=== PATIENT | female | born 1965 | race Caucasian/White ===

== ENCOUNTER 2016-09-16 19:00 | Emergency (ER) | payer MEDICAID, OTHER ==
[~2016-09-16] VITALS: Ht 167.6 cm; Wt 93.0 kg
[2016-09-16 19:40] LABS: Basophils # (auto) 0.1 uL; Basophils % (auto) 0.7 % (0.0-2.0); Eosinophils # (auto) 0.1 uL; Eosinophils % (auto) 1.5 % (0.0-7.0); Hematocrit 43.1 % (36.0-46.0); Hemoglobin 14.4 g/dL (12.2-16.2); Lymphocytes # (auto) 3.4 uL; Lymphocytes % (auto) 38.1 % (10.0-50.0); Mean Corpuscular Hemoglobin 28.9 pg (28.0-32.0); Mean Corpuscular Hgb Conc. 33.5 g/dL (32.0-36.0); Mean Corpuscular Volume 86.3 fL (80.0-100.0); Mean Platelet Volume 7.7 fL (7.4-10.4); Monocytes # (auto) 0.7 uL; Monocytes % (auto) 7.9 % (0.0-12.0); Neutrophils # (auto) 4.7 uL; Neutrophils % (auto) 51.8 % (37.0-80.0); Platelet Count (auto) 321 10^3/uL (140-450); Red Cell Distribution Width 14.8 % (11.6-16.0)
[2016-09-16 20:17] LABS: Albumin 3.8 g/dL (3.4-5.0); Alkaline Phosphatase 74 U/L (45-117); Anion Gap 9 (5-15); Aspartate Aminotransferase 19 U/L (15-37); BUN/Creatinine Ratio 9.9; Bilirubin, Total 0.3 mg/dL (0.2-1.0); Blood Urea Nitrogen 10 mg/dL (7-18); Calcium 9.1 mg/dL (8.5-10.1); Carbon Dioxide 27 mmol/L (21-32); Chloride 109 mmol/L (98-107); GFR African American 74 mL/min; GFR Non-African American 61 mL/min; Glucose 98 mg/dL (74-106); Magnesium 2.3 mg/dL (1.6-2.6); Potassium 3.3 mmol/L (3.5-5.1); Sodium 145 mmol/L (136-145); Total Protein 7.5 g/dL (6.4-8.2)
[2016-09-16 20:40] LABS: INR 0.96 (0.9-1.15); Prothrombin Time 10.4 sec (9.37-12.3)
[2016-09-17] MEDS ORDERED: ALBUTEROL SULF 2.5 MG/0.5ML(0.5%) NEB SOLN NEB ONE (02:30)
[2016-09-17] MEDS ORDERED: IPRATROPIUM BROM 0.5 MG/2.5ML INH SOL NEB ONE (02:30)
[2016-09-17] MEDS ORDERED: methylPREDNISolone SOD SUCC 125 MG/2 ML VL IV ONE (02:30)
[2016-09-17 04:42] LABS: Urine Bilirubin Negative (Negative); Urine Blood Negative /uL (Negative); Urine Color Yellow (Yellow); Urine Glucose Normal (Normal); Urine Ketone Negative (Negative); Urine Nitrite Negative (Negative); Urine RBC 13 /hpf (0 - 4); Urine Squamous Epithelial Cell FEW /hpf (<5); Urine Urobilinogen Normal (Negative)
[2016-09-17 05:43] VITALS: BP 140/78
== END 2016-09-17 05:25 | disposition home or self-care (01) ==
LOC: ER 19:08
DX: J45.901 Unspecified asthma with (acute) exacerbation (principal); N39.0 Urinary tract infection, site not specified; J44.9 Chronic obstructive pulmonary disease, unspecified; I10 Essential (primary) hypertension; F20.9 Schizophrenia, unspecified; F17.210 Nicotine dependence, cigarettes, uncomplicated; F12.10 Cannabis abuse, uncomplicated
CPT/HCPCS: 36415; 71010; 80053; 81001; 83735; 84484; 85025; 85610; 85730; 94640; 96374; 99285; J2930

== ENCOUNTER 2016-09-29 08:25 | Emergency (ER) | payer MEDICAID ==
[~2016-09-29] VITALS: Ht 167.6 cm; Wt 90.7 kg
[2016-09-29 09:29] LABS: Basophils # (auto) 0 uL; Basophils % (auto) 0.3 % (0.0-2.0); Eosinophils # (auto) 0.1 uL; Eosinophils % (auto) 0.9 % (0.0-7.0); Hematocrit 39.3 % (36.0-46.0); Hemoglobin 13.1 g/dL (12.2-16.2); Lymphocytes # (auto) 1.7 uL; Lymphocytes % (auto) 18.7 % (10.0-50.0); Mean Corpuscular Hgb Conc. 33.3 g/dL (32.0-36.0); Mean Corpuscular Volume 87.2 fL (80.0-100.0); Monocytes # (auto) 0.7 uL; Monocytes % (auto) 7.4 % (0.0-12.0); Neutrophils # (auto) 6.5 uL; Neutrophils % (auto) 72.7 % (37.0-80.0); Platelet Count (auto) 285 10^3/uL (140-450); Red Cell Distribution Width 15.6 % (11.6-16.0)
[2016-09-29 10:34] LABS: Urine Bilirubin Negative (Negative); Urine Blood TRACE /uL (Negative); Urine Color Yellow (Yellow); Urine Glucose Normal (Normal); Urine Ketone Negative (Negative); Urine Mucus FEW (None Seen); Urine Nitrite Negative (Negative); Urine RBC 85 /hpf (0 - 4); Urine Squamous Epithelial Cell MOD /hpf (<5); Urine Urobilinogen Normal (Negative); Urine pH 5.5 (5.0-8.0)
[2016-09-29] MEDS ORDERED: cefTRIAXone SOD 1,000 MG VL IM ONE (11:00)
[2016-09-29 12:35] VITALS: BP 124/82
== END 2016-09-29 13:37 | disposition home or self-care (01) ==
LOC: EDUNIT# 08:25 → ER 08:32
DX: R42 Dizziness and giddiness (principal); F17.210 Nicotine dependence, cigarettes, uncomplicated; F12.10 Cannabis abuse, uncomplicated; J45.909 Unspecified asthma, uncomplicated; J44.9 Chronic obstructive pulmonary disease, unspecified; I10 Essential (primary) hypertension
CPT/HCPCS: 36415; 81001; 85025; 93005; 96372; 99285; J0696; 81002

== ENCOUNTER 2024-10-20 10:13 | Emergency (ER) | payer MEDICAID ==
[~2024-10-20] VITALS: Ht 167.6 cm; Wt 78.0 kg
[2024-10-20 10:54] VITALS: BP 131/84; PULSE 102; RESP 18; TEMP 98.4; O2SAT 97
--- NOTE | 2024-10-20 11:13 | ED.PDOC ---
Musculoskeletal HPI Comments A 59 YEAR OLD FEMALE PRESENTS TO THE ED WITH CHIEF COMPLAINT OF LEFT FOOT AND HIP PAIN. PATIENT REPORTS THAT SHE HAS BEEN EXPERIENCING LEFT FOOT PAIN FOR THE PAST FEW DAYS ALONG WITH LEFT HIP PAIN THAT HAS BEEN PRESENT FRO THE PAST 5 YEARS. PT IS ABLE TO WALK AND STAND WITH NORMAL GAIT. PATIENT DENIES ANY FALL, INJURY, NUMBNESS, WEAKNESS, TINGLING, CHEST PAIN, OR SOB. NO OTHER SYMPTOMS REPORTED AT THIS TIME CARE. Chief Complaint: Lower Extremity Time Seen by MD: 11:10 Primary Care Provider: NICOL Carballo Notes: Nurses Notes, Medications, Allergies Allergies: Coded Allergies: NO KNOWN ALLERGIES (Unverified , 09/29/16) Home Meds Active Scripts Ibuprofen (Ibuprofen) 800 Mg Tab, 1 TAB PO TID, #30 TAB Prov:SIMRAN BRYAN 10/20/24 Information Source: Patient Mode of Arrival: Ambulatory Location: Left Extremity Location: Foot, Hip Timing: Months Prehospital treatment: None Severity: Moderate Able to Move Extremity: Yes Bear Weight: Fully Pain: Moderate Mechanism: Spontaneous Circumstances: Spontaneous Onset of Symptoms: Spontaneous Symptoms: Pain DVT Risk Factors: NONE Last Tetanus: UTD Associated signs and symptoms: Hip pain, Foot pain Past Medical History PAST MEDICAL HISTORY: Anxiety, Asthma, COPD, HTN, Schizophrenia Surgical History: Denies all surgeries TEACHER OF THE HANDICAPPED History: No Pertinent TEACHER OF THE HANDICAPPED History Family History Family History: Unobtainable Social History Smoker: Cigarettes, Greater Than 1 Pack/Day Alcohol: Denies ETOH Use Drugs: Marijuana Lives In: Home Constitutional: denies: chills, diaphoresis, fatigue, fever, malaise, sweats, weakness, others EENTM: denies: blurred vision, double vision, ear bleeding, ear discharge, ear drainage, ear pain, ear ringing, eye pain, eye redness, hearing loss, mouth kandace n, mouth swelling, nasal discharge, nose bleeding, nose congestion, nose pain, photophobia, tearing, throat pain, throat swelling, voice changes, others Respiratory: denies: cough, hemoptysis, orthopnea, SOB at rest, shortness of breath, SOB with excertion, stridor, wheezing, others Cardiovascular: denies: chest pain, dizzy spells, diaphoresis, Dyspnea on exertion, edema, irregular heart beat, left arm pain, lightheadedness, palpitations, PND, syncope, others Gastrointestinal: denies: abdomen distended, abdominal pain, blood streaked bowels, constipated, diarrhea, dysphagia, difficulty swallowing, hematemesis, melena, nausea, poor appetite, poor fluid intake, rectal bleeding, rectal pain, vomiting, others Genitourinary: denies: abnormal vagina bleeding, burning, dyspareunia, dysuria, flank pain, frequency, hematuria, incontinence, pain, , vagina discharge, urgency, others Neurological: denies: dizziness, fainting, headache, left sided numbness, left sided weakness, numbness, paresthesia, pre-existing deficit, right sided numbness, right sided weakness, seizure, speech problems, tingling, tremors, weakness, others Musculoskeletal: reports: joint pain, muscle pain, others (LEFT FOOT AND HIP PAIN); denies: back pain, gout, joint swelling, muscle stiffness, neck pain Integumetry: denies: bruises, change in color, change in hair/nails, dryness, laceration, lesions, lumps, rash, wounds, others Allergic/Immunocompromised: denies: Difficulty Healing, Frequent Infections, Hives, Itching, others Hematologic/Lymphatic: denies: anemia, blood clots, easy bleeding, easy bruising, swollen glands, others Endocrine: denies: excessive hunger, excessive sweating, excessive thirst, excessive urination, flushing, intolerance to cold, intolerance to heat, unexplained weight gain, unexplained weight loss, others Psychiatric: denies: anxiety, bipolar disorder, depression, hopeless, panic disorder, schizophrenia, sleepless, suicidal, others All Other Systems: Reviewed and Negative Physical Exam General Appearance: No Apparent Distress, Normal HEENT: Normal ENT Inspection, PERRL/EOMI, Pharynx Normal, TMs Normal Neck: Full Range of Motion, Non-Tender, Normal, Normal Inspection Respiratory: Chest Non-Tender, Lungs Clear, No Accessory Muscle Use, No Respiratory Distress, Normal Breath Sounds Cardiovascular: No Edema, No JVD, No Murmur, No Gallop, Normal Peripheral Pulses, Regular Rate/Rhythm Breast Exam: Deferred Gastrointestinal: No Organomegaly, Non Tender, No Pulsatile Mass, Normal Bowel Sounds, Soft Genitalia: Deferred Pelvic: Deferred Rectal: Deferred Extremities: No calf tenderness, Normal capillary refill, Normal inspection, Normal range of motion, No pedal edema, Tender (LEFT HIP AND LEFT FOOT, NO BONY TENDERNESS, SWELLING AND DEFORMITY. ) Musculoskeletal : Apperance: Normal Neurologic: Alert, software engineering manager II-XII nml as Tested, No Motor Deficits, Normal Affect, Normal Mood, No Sensory Deficits Cerebellar Function: Normal Reflexes: Normal Skin: Dry, Normal Color, Warm Peripheral Pulses: 2+ carotid (R), 2+ carotid (L), 2+ dorsalis pedis (R), 2+ dorsalis pedis (L) Lymphatic: No Adenopathy Was a procedure done? Was a procedure done?: No Differential Diagnosis EXT Differential Diagnosis: Fracture, Sprain, Dislocation, Contusion, Strain, Arthritis, Bursitis X-Ray, Labs, Meds, VS Vital Signs Date Time Temp Pulse Resp B/P (MAP) Pulse Ox O2 Delivery O2 Flow Rate FiO2 10/20/24 10:54 98.4 102 18 131/84 (100) 97 98.4 10/20/24 10:54 102 18 97 Room Air 10/20/24 10:39 98.4 102 18 131/84 (100) 97 98.4 LT HIP XR: FINDINGS/IMPRESSION: : There is no evidence of acute fracture or dislocation. Severe degenerative changes of bilateral hips. FOOT XR: FINDINGS/IMPRESSION: : There is no evidence of acute fracture or dislocation. Soft tissues are unremarkable. Degenerative spurring of the calcaneus. X-Ray, Labs, Meds, VS Comment COURSE: EXTERNAL MEDICAL RECORDS REVIEWED: [NONE] INDEPENDENT HISTORIANS: [NONE] SOCIAL DETERMINANTS OF HEALTH: [NONE] LABS ORDERED: NONE REVIEWED AND INTERPRETED RESULTS: LT FOOT AND LT HIP XR IMAGING ORDERED: LT FOOT AND HIP XR TREATMENTS ORDERED: NONE PROCEDURES PERFORMED: NONE CRITICAL CARE TIME: NONE I HAVE DISCUSSED THE PATIENT WITH THE ATTENDING PHYSICIAN DR. LOPEZ AND HE AGREES WITH THE PATIENT'S PLAN OF CARE AND DISPOSITION. BASED ON HISTORY OF PRESENT ILLNESS, AND PHYSICAL EXAM, PATIENT WILL BE DISCHARGED HOME. DISCUSSED PLAN FOR DISCHARGE HOME WITH RX [MOTRIN 800MG]. MEDICATION WARNINGS GIVEN. SHARED DECISION MAKING: DISCUSSED WITH PATIENT THAT THEIR WORKUP WAS NORMAL. PATIENT INSTRUCTED TO FOLLOW UP WITH PRIMARY CARE PROVIDER IN 1-2 DAYS FOR RE- EVALUATION OF SYMPTOMS. PATIENT VERBALIZES UNDERSTANDING TO RETURN TO ED FOR NEW OR WORSENING SYMPTOMS OR IF FOLLOW UP WITH PCP CANNOT BE OBTAINED. PATIENT FEELS COMFORTABLE GOING HOME AT THIS TIME. ALL QUESTIONS ADDRESSED AT TIME OF DISCHARGE. Time of 1ST Reevaluation: 11:20 Reevaluation 1ST: Improved Patient Education/Counseling: Diagnosis, Treatment, Need For Follow Up Family Education/Counseling: Diagnosis, Treatment, No Family Present Medical Screening: No EMC Exist At This Time Departure 1 Departure Time of Disposition: 12:00 Impression: Primary Impression: Degenerative joint disease of both hips Qualified Codes: M16.0 - Bilateral primary osteoarthritis of hip Additional Impression: Calcaneal spur, left foot Disposition: 01 HOME / SELF CARE / HOMELESS Condition: Stable Additional Instructions: FOLLOW-UP WITH PCP IN 1 TO 2 DAYS. TAKE MEDICATIONS PRESCRIBED. RETURN TO ED FOR ANY NEW OR WORSENING SYMPTOMS. e-Prescriptions Ibuprofen (Ibuprofen) 800 Mg Tab 1 TAB PO TID, #30 TAB Prov: SIMRAN BRYAN 10/20/24 Discharged With: Self Critical Care Note Critical Care Time?: No Stability Stability form required: No Heart Score Heart Score: Heart Score Response (Comments) Value History N/A 0 EKG N/A 0 Age N/A 0 Risk Factors N/A 0 Troponin N/A 0 Total 0 I personally scribed for SIMRAN BRYAN ([email or web address]) on 10/20/24 at 11:12. Electronically submitted by Parvez Little ([email or web address]). I personally scribed for SIMRAN BRYAN ([email or web address]) on 10/20/24 at 12:01. Electronically submitted by Parvez Little ([email or web address]). SIMRAN BRYAN October 20, 2024 11:12
--- NOTE | 2024-10-20 11:40 | DVH ---
CLINICAL INDICATION: PAIN, NO INJURY TECHNIQUE: XY L HIP COMPLETE XRAY Comparison: None FINDINGS/IMPRESSION: : There is no evidence of acute fracture or dislocation. Severe degenerative changes of bilateral hips.
--- NOTE | 2024-10-20 11:47 | DVH ---
CLINICAL INDICATION: PAIN, NO INJURY TECHNIQUE: XY L FOOT 2 VIEW XRAY Comparison: None FINDINGS/IMPRESSION: : There is no evidence of acute fracture or dislocation. Soft tissues are unremarkable. Degenerative spurring of the calcaneus.
[2024-10-20] MEDS ORDERED: IBUP-1456 PO (12:02)
== END 2024-10-20 12:00 | disposition home or self-care (01) ==
LOC: ER 10:17
DX: M16.0 Bilateral primary osteoarthritis of hip (principal); M77.32 Calcaneal spur, left foot; I10 Essential (primary) hypertension; F20.9 Schizophrenia, unspecified; F41.9 Anxiety disorder, unspecified; F17.210 Nicotine dependence, cigarettes, uncomplicated; J44.9 Chronic obstructive pulmonary disease, unspecified
CPT/HCPCS: 73502; 73620

== ENCOUNTER 2024-10-22 08:24 | Emergency (ER) | payer MEDICAID ==
[~2024-10-22] VITALS: Ht 167.6 cm; Wt 77.9 kg
[~2024-10-22 08:24] MED LIST: IBUP-1456 PO
--- NOTE | 2024-10-22 09:44 | ED.PDOC ---
History of Present Illness HPI Comments 59F presents to the ER w/ prior Hx associated to the c/c of Anxiety, Asthma, COPD, HTN, Schizophrenic and the c/c of Eye problems. pt reports on being unable to move and or see partially from the left eye for "multiple years". Denies chills, fever, N/V/D, SOB. No other associated symptoms, modifiers, recent injuries or sick contacts present at this time. Chief Complaint: Eye Problem Time Seen by MD: 09:05 Primary Care Provider: JOHN Reviewed Notes: Nurses Notes, Medications, Allergies Allergies: Coded Allergies: NO KNOWN ALLERGIES (Unverified , 09/29/16) Home Meds Active Scripts Ibuprofen (Ibuprofen) 800 Mg Tab, 1 TAB PO TID, #30 TAB Prov:SIMRAN BRYAN 10/20/24 Information Source: Patient Mode of Arrival: Ambulatory Severity: Moderate Timing: Other (Years) Duration: Since onset Prehospital treatment: None Past Medical History PAST MEDICAL HISTORY: Anxiety, Asthma, COPD, HTN, Schizophrenia Surgical History: Denies all surgeries CERTIFIED APPLIANCE SERVICE TECHNICIAN History: No Pertinent CERTIFIED APPLIANCE SERVICE TECHNICIAN History Family History Family History: Reviewed,noncontributory to illness, Unobtainable Social History Smoker: Unknown Alcohol: Unknown Drugs: Unknown Lives In: Home Constitutional: denies: chills, diaphoresis, fatigue, fever, malaise, sweats, weakness, others EENTM: reports: others (Unable to see); denies: blurred vision, double vision, ear bleeding, ear discharge, ear drainage, ear pain, ear ringing, eye pain, eye redness, hearing loss, mouth pain, mouth swelling, nasal discharge, nose bleeding, nose congestion, nose pain, photophobia, tearing, throat pain, throat swelling, voice changes Respiratory: denies: cough, hemoptysis, orthopnea, SOB at rest, shortness of breath, SOB with excertion, stridor, wheezing, others Cardiovascular: denies: chest pain, dizzy spells, diaphoresis, Dyspnea on exertion, edema, irregular heart beat, left arm pain, lightheadedness, palpitations, PND, syncope, others Gastrointestinal: denies: abdomen distended, abdominal pain, blood streaked bowels, constipated, diarrhea, dysphagia, difficulty swallowing, hematemesis, melena, nausea, poor appetite, poor fluid intake, rectal bleeding, rectal pain, vomiting, others Genitourinary: denies: abnormal vagina bleeding, burning, dyspareunia, dysuria, flank pain, frequency, hematuria, incontinence, pain, , vagina discharge, urgency, others Neurological: denies: dizziness, fainting, headache, left sided numbness, left sided weakness, numbness, paresthesia, pre-existing deficit, right sided nu mbness, right sided weakness, seizure, speech problems, tingling, tremors, weakness, others Musculoskeletal: denies: back pain, gout, joint pain, joint swelling, muscle pain, muscle stiffness, neck pain, others Integumetry: denies: bruises, change in color, change in hair/nails, dryness, laceration, lesions, lumps, rash, wounds, others Allergic/Immunocompromised: denies: Difficulty Healing, Frequent Infections, Hives, Itching, others Hematologic/Lymphatic: denies: anemia, blood clots, easy bleeding, easy bruising, swollen glands, others Endocrine: denies: excessive hunger, excessive sweating, excessive thirst, excessive urination, flushing, intolerance to cold, intolerance to heat, unexplained weight gain, unexplained weight loss, others Psychiatric: denies: anxiety, bipolar disorder, depression, hopeless, panic disorder, schizophrenia, sleepless, suicidal, others All Other Systems: Reviewed and Negative Physical Exam General Appearance: Moderate Distress, Normal HEENT: Normal ENT Inspection, Pharynx Normal, TMs Normal Neck: Full Range of Motion, Non-Tender, Normal, Normal Inspection Respiratory: Chest Non-Tender, Lungs Clear, No Accessory Muscle Use, No Respiratory Distress, Normal Breath Sounds Cardiovascular: No Edema, No JVD, No Murmur, No Gallop, Normal Peripheral Pulses, Regular Rate/Rhythm Breast Exam: Deferred Gastrointestinal: No Organomegaly, Non Tender, No Pulsatile Mass, Normal Bowel Sounds, Soft Genitalia: Deferred Pelvic: Deferred Rectal: Deferred Extremities: No calf tenderness, Normal capillary refill, Normal inspection, Normal range of motion, Non-tender, No pedal edema Musculoskeletal : Apperance: Normal Neurologic: Alert, sort worker II-XII nml as Tested, No Motor Deficits, Normal Affect, Normal Mood, No Sensory Deficits Cerebellar Function: Normal Reflexes: Normal Skin: Dry, Normal Color, Warm Peripheral Pulses: 3+ Radial (R), 3+ Radial (L) Lymphatic: No Adenopathy Was a procedure done? Was a procedure done?: No Differential Dx Considerations may include: Anxiety X-Ray, Labs, Meds, VS Vital Signs Date Time Temp Pulse Resp B/P (MAP) Pulse Ox O2 Delivery O2 Flow Rate FiO2 10/22/24 09:19 97.5 92 16 144/86 (105) 95 97.5 10/22/24 09:19 92 16 95 Room Air 10/22/24 08:24 97.5 92 16 144/86 (105) 95 97.5 Patient alert. No sign of distress. Anxious. Vitals stable. Answering all questions. No sign of any injury. Pristine physical examination. Reviewed her history. Explained to the patient. Continue monitoring. Was told to follow up with her primary care physician. Was told to come back if there is any problem. Time of 1ST Reevaluation: 09:35 Reevaluation 1ST: Unchanged Patient Education/Counseling: Diagnosis, Treatment, Prognosis Family Education/Counseling: No Family Present Departure 1 Departure Time of Disposition: 11:11 Impression: Primary Impression: Degenerative joint disease of both hips Qualified Codes: M16.0 - Bilateral primary osteoarthritis of hip Additional Impression: Anxiety Disposition: 01 HOME / SELF CARE / HOMELESS Condition: Good e-Prescriptions Ibuprofen Micronized (MOTRIN TABLET) 600 Mg Tb 600 MG PO TID PRN for 5 Days, #15 TAB *Black box warning-NSAIDS can increase risk of WI & hypertension, GI irritation, ulceration, bleed, perferation. Do not use post cardiac surgery. Use short duration/lowest effective dose. Prov: LEENA LOPEZ MD 10/22/24 Discharged With: Self Critical Care Note Critical Care Time?: No Stability Stability form required: No Heart Score Heart Score: Heart Score Response (Comments) Value History N/A 0 EKG N/A 0 Age N/A 0 Risk Factors N/A 0 Troponin N/A 0 Total 0 I personally scribed for LEENA LOPEZ MD ([email or web address]) on 10/22/24 at 09:44. Electronically submitted by Wilder Rodarte ([email or web address]). LEENA LOPEZ MD October 22, 2024 09:44
[2024-10-22] MEDS ORDERED: IBU600T PO (11:12)
[2024-10-22 11:29] VITALS: BP 141/90; PULSE 77; RESP 18; TEMP 97.9; O2SAT 96
== END 2024-10-22 11:31 | disposition home or self-care (01) ==
LOC: ER 08:29
DX: M16.0 Bilateral primary osteoarthritis of hip (principal); F41.9 Anxiety disorder, unspecified; I10 Essential (primary) hypertension; F20.9 Schizophrenia, unspecified; J44.9 Chronic obstructive pulmonary disease, unspecified; Z79.1 Long term (current) use of non-steroidal anti-inflammatories (NSAID)

== ENCOUNTER 2024-12-12 10:38 | Emergency (ER) | payer MEDICAID ==
[~2024-12-12] VITALS: Ht 167.6 cm; Wt 71.8 kg
[~2024-12-12 10:38] MED LIST changes: +IBU600T PO
--- NOTE | 2024-12-12 11:18 | ED.PDOC ---
Musculoskeletal HPI Comments 59 year old female with a past medical history of anxiety, asthma, COPD, schizophrenia, hypertension, presents to the emergency department with a chief complaint of chronic bilateral shoulder pain. Patient states she has been experiencing chronic bilateral shoulder and bilateral hand pain since 2016. No other symptoms or modifying factors present at this time. Alleviating worsening factors abduction Range of motion restricted Therapy discharge: OTC ibu with temp relief Denies fevers chills night sweats nausea vomiting redness around the shoulder Denies previous surgeries to the shoulder or significant injury Numbness/tingling down the arm Denies changes, shortness of breath Time Seen by MD: 11:10 Primary Care Provider: JOHN Carballo Notes: Medications, Allergies Allergies: Coded Allergies: NO KNOWN ALLERGIES (Unverified , 09/29/16) Home Meds Active Scripts Ibuprofen (Ibuprofen) 600 Mg Tab, 1 TAB PO TID for 10 Days, #30 TAB 0 Refills Prov:ROSITA HULL NP 12/12/24 Ibuprofen Micronized (MOTRIN TABLET) 600 Mg Tb, 600 MG PO TID PRN for 5 Days, #15 TAB *Black box warning-NSAIDS can increase risk of KS & hypertension, GI irritation, ulceration, bleed, perferation. Do not use post cardiac surgery. Use short duration/lowest effective dose. Prov:LEENA LOPEZ MD 10/22/24 Ibuprofen (Ibuprofen) 800 Mg Tab, 1 TAB PO TID, #30 TAB Prov:SIMRAN BRYAN 10/20/24 Information Source: Patient Mode of Arrival: Ambulatory Location: Bilateral Extremity Location: Hand, Shoulder Timing: Months Prehospital treatment: None Severity: Moderate Able to Move Extremity: Yes Bear Weight: Fully Pain: Moderate Mechanism: Spontaneous Circumstances: Spontaneous Symptoms: Pain DVT Risk Factors: NONE Associated signs and symptoms: Shoulder pain, Hand pain Past Medical History PAST MEDICAL HISTORY: Anxiety, Asthma, COPD, HTN, Schizophrenia Surgical History: Denies all surgeries SVP OPERATIONS History: No Pertinent SVP OPERATIONS History Family History Family History: Reviewed,noncontributory to illness, Unobtainable Social History Smoker: Unknown Alcohol: Unknown Drugs: Unknown Lives In: Home All Other Systems: Reviewed and Negative (as per HPI) Physical Exam General Appearance: Normal HEENT: Normal ENT Inspection, Pharynx Normal, TMs Normal Neck: Full Range of Motion, Non-Tender, Normal, Normal Inspection Respiratory: Chest Non-Tender, Lungs Clear, No Accessory Muscle Use, No Respiratory Distress, Normal Breath Sounds Cardiovascular: No Edema, No JVD, No Murmur, No Gallop, Normal Peripheral Pulses, Regular Rate/Rhythm Breast Exam: Deferred Gastrointestinal: No Organomegaly, Non Tender, No Pulsatile Mass, Normal Bowel Sounds, Soft Genitalia: Deferred Pelvic: Deferred Rectal: Deferred Extremities: No calf tenderness, Normal capillary refill, Normal inspection, Normal range of motion, Non-tender, No pedal edema Musculoskeletal : Location: Left Extremity Location: Shoulder (L Shoulder: No gross abnormality on inspection. No shoulder drop visible. No clavicular tenderness on palpation. Palpation tenderness to coracoid process and acromion process. No scapular, supraspinatus, infraspinatus tenderness to touch. Limited flexion passive movement due to pain. Pain with abduction. ) Apperance: Normal Neurologic: Alert, mechanics handyman II-XII nml as Tested, No Motor Deficits, Normal Affect, Normal Mood, No Sensory Deficits Cerebellar Function: Normal Reflexes: Normal Skin: Dry, Normal Color, Warm Lymphatic: No Adenopathy Was a procedure done? Was a procedure done?: Yes Sedation Sedation?: No Other Procedure Procedure Shoulder injection Indication Moderate arthritis Anesthetic NO Prep Betadine and alcohol Success Yes Informed consent obtained: Yes Risks, benefits, and alternati: Yes UTO Consent Yes Notes Patient was also informed that we recommend against routine use of the intra articular glucocorticoid injections Patient was informed that we limit the use of intra-articular injections to patients with moderate to severe pain and to have failed other treatment options and who are seeking short-term pain relief. Patient was also informed that this procedure is not routinely recommended in clinical practice and patient should not receive multiple nor repetitive injections. Patient was also informed that serial injections like every 3 months are discouraged due to potential negative effects on the progression of cartilage damage Risks and benefits of steroid injections were discussed with patient and patient gave verbal consent to the procedure. The left posterior approach The area was prepped in the usual sterile fashion using alcohol and iodine. A 25-gauge, 1-1/2 inch needle into the shoulder joint using the posterior approach. Through the needle I injected a solution containing 1 cc 40 mg of Kenalog and 4 cc of 1% lidocaine. The needle was removed and a sterile dressing (Band-Aid) was applied patient tolerated procedure well Voltaren gel as needed for the pain Stretch as tolerated On reevaluation, patient had symptomatic improvement. Patient is stable for discharge at this time. External notes reviewed. Test results and diagnostic imaging interpreted. All diagnostic findings, discharge care, education and instructions provided Follow-up with PCP in 2 to 3 days Patient verbalized understanding and agreed to treatment plan Vital signs stable, afebrile, no acute distress noted Patient ambulatory with strong steady gait Advised to return precautions for any new or worsening symptoms, return to ER immediately for re-evaluation Patient is aware that the purpose of this visit was for an acute medical emergency requiring emergent stabilization. Chronic conditions, including malignancies have not been ruled out. Patient is instructed to follow up with PCP as directed and discharge instructions for continued care and workup. If unable to arrange follow-up, patient is to return to the emergency department for reassessment. Patient (parent or legal guardian if applicable) was given verbal and written discharge instructions and acknowledges understanding. Differential Diagnosis EXT Differential Diagnosis: Fracture, Dislocation, Arthritis, Bursitis X-Ray, Labs, Meds, VS Vital Signs Date Time Temp Pulse Resp B/P (MAP) Pulse Ox O2 Delivery O2 Flow Rate FiO2 12/12/24 16:48 98.9 105 16 143/95 (111) 94 98.9 12/12/24 16:48 105 16 94 Room Air 12/12/24 16:34 98.8 104 20 129/81 (97) 96 98.8 12/12/24 11:13 97.8 118 16 142/85 (104) 95 97.8 Lab Test 12/12/24 13:39 12/12/24 11:41 Range/Units Urine Color Light-yellow Yellow Urine Clarity Clear Clear Urine pH 5.5 5.0-9.0 Urine Specific [place] 1.004 1.001-1.035 Urine Protein Negative Negative Urine Ketones Negative Negative Urine Blood Negative Negative /uL Urine Nitrite Negative Negative Urine Bilirubin Negative Negative Urine Urobilinogen Normal Negative mg/dL Urine Leukocyte Esterase Negative Negative /uL Urine RBC 1 0 - 4 /hpf Urine Microscopic WBC 1 0-5 /HPF Urine Squamous Epithelial Cells Few <5 /hpf Urine Bacteria Few H None Seen /hpf Urine Glucose Normal Normal mg/dL White Blood Count 9.2 4.4-10.8 10^3/uL Red Blood Count 5.19 4.0-5.20 10^6/uL Hemoglobin 15.7 12.2-16.2 g/dL Hematocrit 45.9 36.0-46.0 % Mean Corpuscular Volume 88.5 80.0-100.0 fL Mean Corpuscular Hemoglobin 30.3 28.0-32.0 pg Mean Corpuscular Hemoglobin Concent 34.3 32.0-36.0 g/dL Red Cell Distribution Width 13.7 11.8-14.3 % Platelet Count 292 140-450 10^3/uL Mean Platelet Volume 7.4 6.9-10.8 fL Neutrophils (%) (Auto) 78.5 37.0-80.0 % Lymphocytes (%) (Auto) 15.0 10.0-50.0 % Monocytes (%) (Auto) 5.9 0.0-12.0 % Eosinophils (%) (Auto) 0.2 0.0-7.0 % Basophils (%) (Auto) 0.4 0.0-2.0 % Neutrophils # (Auto) 7.3 1.6-8.6 10 ^3/uL Lymphocytes # (Auto) 1.4 0.4-5.4 10 ^3/uL Monocytes # (Auto) 0.5 0-1.3 10 ^3/uL Eosinophils # (Auto) 0 0-0.8 10 ^3/uL Basophils # (Auto) 0 0-0.2 10 ^3/uL Nucleated Red Blood Cells 0.1 % Sodium Level 139 136-145 mmol/L Potassium Level 3.8 3.5-5.1 mmol/L Chloride Level 109 H 98-107 mmol/L Carbon Dioxide Level 21 20-31 mmol/L Anion Gap 9 5-15 Blood Urea Nitrogen 11 9-23 mg/dL Creatinine 1.07 H 0.550-1.02 mg/dL Glomerular Filtration Rate Calc 59 >90 mL/min BUN/Creatinine Ratio 10.3 10.0-20.0 Serum Glucose 117 H 74-106 mg/dL Calcium Level 10.5 H 8.7-10.4 mg/dL [address] [address] Ph: [phone] DIAGNOSTIC IMAGING Diagnostic Imaging Report : [id number] Signed PATIENT: KATIUSKA QUINTANA ACCT: [id number] UNIT: [id number] : 1965 LOC: ER ROOM / BED: / AGE / SEX: 59 / F ADM STATUS: REG ER SERVICE 1114 ORDERING PHYSICIAN: ROSITA HULL DYNAMOMETER MECHANIC PROCEDURE(s): RSHD2 - R SHOULDER 2+ VIEW XRAY REASON: Chx pain ORDER NUMBER(s): [id number], ACCESSION NUMBER(s): [id number] CLINICAL INDICATION: pain TECHNIQUE: 3 radiographic views of the right shoulder were obtained. Comparison: None FINDINGS/IMPRESSION: There is no evidence of acute fracture or dislocation. The visualized joint space is well maintained. The alignment is anatomical. There is no radiopaque foreign body. ATED BY: SAMIRA YANG MD DICTATED DATE/TIME: 12/12/241202 SIGNED BY: SAMIRA YANG MD SIGNED DATE/TIME: 12/12/24 120 CC: [place] [id number] Ph: [phone] DIAGNOSTIC IMAGING Diagnostic Imaging Report : [id number] Signed PATIENT: KATIUSKA QUINTANA ACCT: [id number] UNIT: [id number] : 1965 LOC: ER ROOM / BED: / AGE / SEX: 59 / F ADM STATUS: REG ER SERVICE 1114 ORDERING PHYSICIAN: ROSITA HULL DYNAMOMETER MECHANIC PROCEDURE(s): LSHD2 - L SHOULDER 2+ VIEW XRAY REASON: Chx pain ORDER NUMBER(s): [id number], ACCESSION NUMBER(s): [id number] CLINICAL INDICATION: pain TECHNIQUE: 3 radiographic views of the left shoulder were obtained. Comparison: None FINDINGS/IMPRESSION: There is no evidence of acute fracture or dislocation. Moderate osteoarthrosis of the left glenohumeral joint. ATED BY: SAMIRA YANG MD DICTATED DATE/TIME: 12/12/24 120 SIGNED BY: SAMIRA YANG MD SIGNED DATE/TIME: 12/12/24 120 CC: X-Ray, Labs, Meds, VS Comment 59 year old female with a past medical history of anxiety, asthma, COPD, schizophrenia, hypertension, presents to the emergency department with a chief complaint of chronic bilateral shoulder pain. Patient arrives alert and oriented, ABC's intact, afebrile, vital signs stable, saturating well in room air labs were ordered. CBC was ordered to exclude anemia, blood loss, or infection. BMP was ordered to exclude electrolyte abnormalities, renal failure, dehydration, hyperglycemia Urinalysis was ordered to rule out UTI or hematuria. Diagnostic imaging ordered by me and results interpreted by radiology: XY R SHOULDER 2+ VIEW: IMPRESSION: There is no evidence of acute fracture or dislocation. The visualized joint space is well maintained. The alignment is anatomical. There is no radiopaque foreign body. L SHOULDER 2+ VIEW:IMPRESSION: There is no evidence of acute fracture or dislocation. Moderate osteoarthrosis of the left glenohumeral joint. On reevaluation, patient had symptomatic improvement. Patient is stable for discharge at this time. External notes reviewed. Test results and diagnostic imaging interpreted. All diagnostic findings, discharge care, education and instructions provided Follow-up with PCP in 2 to 3 days Patient verbalized understanding and agreed to treatment plan Vital signs stable, afebrile, no acute distress noted Patient ambulatory with strong steady gait Advised to return precautions for any new or worsening symptoms, return to ER immediately for re-evaluation Patient is aware that the purpose of this visit was for an acute medical emergency requiring emergent stabilization. Chronic conditions, including malignancies have not been ruled out. Patient is instructed to follow up with PCP as directed and discharge instructions for continued care and workup. If unable to arrange follow-up, patient is to return to the emergency department for reassessment. Patient (parent or legal guardian if applicable) was given verbal and written discharge instructions and acknowledges understanding. Additional MDM Review of External, Non-ED records: External records reviewed. Discussion with independent historian (EMS, family) history obtained from the patient/parents (if applicable) at bedside Chronic conditions affecting care: HTN, COPD, asthma, anxiety, schizophrenia Social determinants of health affecting care: None Consideration of admission (observation or admission): I considered escalation of care to admission for this patient, however given the reassuring workup, the patient is safe for outpatient management. Time of 1ST Reevaluation: 11:40 Reevaluation 1ST: Unchanged Patient Education/Counseling: Diagnosis, Treatment Family Education/Counseling: No Family Present Departure 1 Departure Time of Disposition: 15:46 Impression: Primary Impression: Arthritis of left shoulder Disposition: 01 HOME / SELF CARE / HOMELESS Condition: Stable e-Prescriptions Ibuprofen (Ibuprofen) 600 Mg Tab 1 TAB PO TID for 10 Days, #30 TAB 0 Refills Prov: ROSITA HULL NP 12/12/24 Critical Care Note Critical Care Time?: No Stability Stability form required: No Heart Score Heart Score: Heart Score Response (Comments) Value History N/A 0 EKG N/A 0 Age N/A 0 Risk Factors N/A 0 Troponin N/A 0 Total 0 I personally scribed for ROSITA HULL NP ([email or web address]) on 12/12/24 at 11:18. Electronically submitted by Ethel Weinstein ([email or web address]). I personally scribed for ROSITA HULL NP ([email or web address]) on 12/12/24 at 11:19. Electronically submitted by Ethel Weinstein ([email or web address]). I personally scribed for ROSITA HULL NP ([email or web address]) on 12/12/24 at 16:49. Electronically submitted by Ethel Weinstein ([email or web address]). ROSITA HULL NP Dec 12, 2024 11:18
[2024-12-12 12:01] LABS: Hematocrit 45.9 % (36.0-46.0); Hemoglobin 15.7 g/dL (12.2-16.2); Mean Corpuscular Hemoglobin 30.3 pg (28.0-32.0); Mean Corpuscular Volume 88.5 fL (80.0-100.0); Nucleated Red Blood Cells % 0.1 %
--- NOTE | 2024-12-12 12:05 | DVH ---
CLINICAL INDICATION: pain TECHNIQUE: 3 radiographic views of the right shoulder were obtained. Comparison: None FINDINGS/IMPRESSION: There is no evidence of acute fracture or dislocation. The visualized joint space is well maintained. The alignment is anatomical. There is no radiopaque foreign body.
--- NOTE | 2024-12-12 12:06 | DVH ---
CLINICAL INDICATION: pain TECHNIQUE: 3 radiographic views of the left shoulder were obtained. Comparison: None FINDINGS/IMPRESSION: There is no evidence of acute fracture or dislocation. Moderate osteoarthrosis of the left glenohumeral joint.
[2024-12-12 12:10] LABS: Potassium 3.8 mmol/L (3.5-5.1); Sodium 139 mmol/L (136-145)
[2024-12-12 12:11] LABS: Anion Gap 9 (5-15); Carbon Dioxide 21 mmol/L (20-31)
[2024-12-12 12:12] LABS: Calcium 10.5 mg/dL (8.7-10.4); Chloride 109 mmol/L (98-107)
[2024-12-12 12:16] LABS: BUN/Creatinine Ratio 10.3 (10.0-20.0); Blood Urea Nitrogen 11 mg/dL (9-23)
[2024-12-12 12:17] LABS: Glucose 117 mg/dL (74-106)
[2024-12-12 14:00] LABS: Urine Protein, UAD Negative (Negative)
[2024-12-12] MEDS: LIDOCAINE 1% HCL (LOCAL ANESTH.) INJ 20ML MDV ID ONE (15:30)
[2024-12-12] MEDS: TRIAMCINOLONE 40MG/ML 1ML VIAL IX ONE (15:31)
[2024-12-12] MEDS ORDERED: IBUP-1454 PO (15:46)
[2024-12-12 16:48] VITALS: BP 143/95; PULSE 105; RESP 16; TEMP 98.9; O2SAT 94
== END 2024-12-12 16:51 | disposition home or self-care (01) ==
LOC: ER 10:38
DX: M19.012 Primary osteoarthritis, left shoulder (principal); F41.9 Anxiety disorder, unspecified; J45.909 Unspecified asthma, uncomplicated; J44.89 Other specified chronic obstructive pulmonary disease; I10 Essential (primary) hypertension; F20.9 Schizophrenia, unspecified; Z79.1 Long term (current) use of non-steroidal anti-inflammatories (NSAID); Z79.899 Other long term (current) drug therapy
CPT/HCPCS: 20610; 36415; 73030; 80048; 81001; 85025; 99284; J2003; J3301

== ENCOUNTER 2024-12-20 00:10 | Emergency (ER) | payer MEDICAID ==
[~2024-12-20] VITALS: Ht 167.6 cm; Wt 77.2 kg
[~2024-12-20 00:10] MED LIST changes: +IBUP-1454 PO
[2024-12-20 00:46] LABS: Hematocrit 42.8 % (36.0-46.0); Hemoglobin 14.7 g/dL (12.2-16.2); Mean Corpuscular Hemoglobin 30.3 pg (28.0-32.0); Mean Corpuscular Volume 88.6 fL (80.0-100.0); Nucleated Red Blood Cells % 0.0 %
[2024-12-20 00:54] LABS: Sodium 139 mmol/L (136-145)
[2024-12-20 00:55] LABS: Anion Gap 8 (5-15); Carbon Dioxide 24 mmol/L (20-31)
[2024-12-20 00:56] LABS: Calcium 9.7 mg/dL (8.7-10.4)
[2024-12-20 00:58] LABS: Chloride 107 mmol/L (98-107); Potassium 3.4 mmol/L (3.5-5.1)
--- NOTE | 2024-12-20 00:59 | ED.PDOC ---
Psychiatric HPI Comments 59-year-old female is brought in by ambulance for chief complaint of suicidal ideations, depression, and anxiety. Patient endorses on having symptoms for over the past 2 weeks after being told "on being the 1st woman her age to have a further egg." Endorses plans on ending her life by overdosing on medications and admits to taking 2 unnamed pills of unknown dosage for sleeping, earlier, this evening. Denies any homicidal ideations, auditory hallucination, or further associated symptoms. Significant history for anxiety, asthma, COPD, hypertension, bipolar disorder, and schizophrenia. Chief Complaint: Mental Health Time Seen by MD: 00:15 Primary Care Provider: JOHN Reviewed Notes: Nurses Notes, Celery Tier Notes, Medications, Allergies Information Source: Patient, Emergency Med Personnel Mode of Arrival: EMS Review of Systems: REVIEW OF SYSTEMS: No fever, no chills, HEENT: No neck pain, no blurred vision Cardiac: No chest pain. No palpitations. Lungs: No shortness of breath, GI: No abdominal pain, no vomiting Musculoskeletal: No joint pain , no back pain Skin: No rash, no wound Neuro: No headache, no dizziness, no syncope Psychiatric: Suicide ideations, depression, anxiety Vital Signs Vital Signs Date Time Temp Pulse Resp B/P (MAP) Pulse Ox O2 Delivery O2 Flow Rate FiO2 12/20/24 16:00 97.8 70 16 124/74 (91) 98 97.8 12/20/24 16:00 Room Air* 0 21 Physical Exam General: Awake, alert and oriented. No acute distress. Skin: Skin in warm, dry and intact without rashes or lesions. HEENT: The head is normocephalic and atraumatic. Conjunctivae are clear without exudates or hemorrhage. Sclera is non-icteric. Neck: Normal range of motion. No JVD. Cardiac: Regular rate Respiratory: No signs of respiratory distress. No Stridor. Extremities: Upper and lower extremities are atraumatic in appearance without deformity. Neurological: The patient is awake, alert and oriented to person, place, and time with normal speech. Speech is clear. There is no facial asymmetry. Psychiatric: Appropriate mood but anxious and tearful affect. Past Medical History PAST MEDICAL HISTORY: Anxiety, Asthma, COPD, HTN, Schizophrenia Surgical History: Denies all surgeries BUCK SWAMPER History: No Pertinent BUCK SWAMPER History Family History Family History: Reviewed,noncontributory to illness, Unobtainable Social History Smoker: Unknown Alcohol: Unknown Drugs: Unknown Lives In: Home Was a procedure done? Was a procedure done?: No Psych Differential Dx Psych. Differential Dx: Anxiety, Bipolar Disorder, Depression, Hopeless, Panic Disorder, Schizoprenia, Suicidal Suicidal Differential Dx: Anxiety, Bipolar Disorder, Depression, Schizoprenia X-Ray, Labs, Meds, VS Vital Signs Date Time Temp Pulse Resp B/P (MAP) Pulse Ox O2 Delivery O2 Flow Rate FiO2 12/20/24 16:00 97.8 70 16 124/74 (91) 98 97.8 12/20/24 16:00 Room Air* 0 21 12/20/24 00:21 98.1 81 16 143/80 (101) 95 98.1 Lab Test 12/20/24 00:31 Range/Units White Blood Count 8.2 4.4-10.8 10^3/uL Red Blood Count 4.83 4.0-5.20 10^6/uL Hemoglobin 14.7 12.2-16.2 g/dL Hematocrit 42.8 36.0-46.0 % Mean Corpuscular Volume 88.6 80.0-100.0 fL Mean Corpuscular Hemoglobin 30.3 28.0-32.0 pg Mean Corpuscular Hemoglobin Concent 34.3 32.0-36.0 g/dL Red Cell Distribution Width 13.8 11.8-14.3 % Platelet Count 252 140-450 10^3/uL Mean Platelet Volume 7.4 6.9-10.8 fL Neutrophils (%) (Auto) 64.5 37.0-80.0 % Lymphocytes (%) (Auto) 24.8 10.0-50.0 % Monocytes (%) (Auto) 9.4 0.0-12.0 % Eosinophils (%) (Auto) 0.6 0.0-7.0 % Basophils (%) (Auto) 0.7 0.0-2.0 % Neutrophils # (Auto) 5.3 1.6-8.6 10 ^3/uL Lymphocytes # (Auto) 2.0 0.4-5.4 10 ^3/uL Monocytes # (Auto) 0.8 0-1.3 10 ^3/uL Eosinophils # (Auto) 0 0-0.8 10 ^3/uL Basophils # (Auto) 0.1 0-0.2 10 ^3/uL Nucleated Red Blood Cells 0.0 % Sodium Level 139 136-145 mmol/L Potassium Level 3.4 L 3.5-5.1 mmol/L Chloride Level 107 98-107 mmol/L Carbon Dioxide Level 24 20-31 mmol/L Anion Gap 8 5-15 Blood Urea Nitrogen 9 9-23 mg/dL Creatinine 0.99 0.550-1.02 mg/dL Glomerular Filtration Rate Calc 65 >90 mL/min BUN/Creatinine Ratio 9.1 L 10.0-20.0 Serum Glucose 109 H 74-106 mg/dL Calcium Level 9.7 8.7-10.4 mg/dL Plasma/Serum Blood Alcohol < 3.0 <10 mg/dL Time of 1ST Reevaluation: 00:45 Reevaluation 1ST: Unchanged Patient Education/Counseling: Other (ED observation) Family Education/Counseling: No Family Present Departure 1 Departure Time of Disposition: 12:01 (Patient is medically cleared and pending psychiatric placement.Patient agrees to a voluntary psychiatric transfer.) Impression: Primary Impression: Suicide ideation Disposition: [address] [place] [address] Condition: Serious Comments Extensive evaluation was performed in attempt to identify or rule out: (See differential diagnosis section) Reviewed the following notes from the pt's past medical encounters: September 29, 2016 and December 12, 2024 encounters for anxiety and arthritis of the left shoulder, respectively. Additional information was gathered from interviewing the following independent historians: EMS Critical Care Note Critical Care Time?: Yes Critical care comment: Suicidal patient Authorized and Performed by: Amandeep Sebastian MD Total critical care time: Approximately 39 minutes Due to a high probability of clinically significant, life threatening deterioration, the patient required my highest level of preparedness to intervene emergently and I personally spent this critical care time directly and personally managing the patient. This critical care time included obtaining a history; examining the patient; pulse oximetry; ordering and review of studies; arranging urgent treatment with development of a management plan; evaluation of patient's response to treatment; frequent reassessment; and, discussions with other providers. This critical care time was performed to assess and manage the high probability of imminent, life-threatening deterioration that could result in multi-organ failure. It was exclusive of separately billable procedures and treating other patients and teaching time. Please see my other sections and the rest of the note for further information on patient assessment and treatment. Stability Stability form required: No Heart Score Heart Score: Heart Score Response (Comments) Value History N/A 0 EKG N/A 0 Age N/A 0 Risk Factors N/A 0 Troponin N/A 0 Total 0 I personally scribed for SHANNAN MENDEZ MD ([email or web address]) on 12/20/24 at 00:59. Electronically submitted by Sha Gallagher ([email or web address]). SHANNAN MENDEZ MD Dec 20, 2024 00:59 AMANDEEP SEBASTIAN MD Dec 20, 2024 12:03
[2024-12-20 01:00] LABS: BUN/Creatinine Ratio 9.1 (10.0-20.0)
[2024-12-20 01:12] LABS: Blood Urea Nitrogen 9 mg/dL (9-23); Glucose 109 mg/dL (74-106)
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
[2024-12-20 19:15] VITALS: BP 121/74; PULSE 70; RESP 16; TEMP 97.8; O2SAT 98
== END 2024-12-20 19:15 ==
LOC: EDBD 00:10 → ER 00:10
DX: R45.851 Suicidal ideations (principal); F41.9 Anxiety disorder, unspecified; I10 Essential (primary) hypertension; J44.9 Chronic obstructive pulmonary disease, unspecified; F20.9 Schizophrenia, unspecified; F31.9 Bipolar disorder, unspecified; Z79.899 Other long term (current) drug therapy
CPT/HCPCS: 36415; 80048; 80320; 85025

== ENCOUNTER 2025-03-15 08:51 | Emergency (ER) | payer MEDICAID ==
[~2025-03-15] VITALS: Ht 167.6 cm; Wt 88.5 kg
[2025-03-15 08:58] VITALS: TEMP 97.7
--- NOTE | 2025-03-15 09:38 | ED.PDOC ---
History of Present Illness HPI Comments A 59 YEAR OLD FEMALE BROUGHT IN BY AMBULANCE PRESENTS TO THE ED WITH COMPLAINT OF ANXIETY. PATIENT STATES SHE HAS A HISTORY OF ANXIETY AND BEGAN TO FEEL SHAKINESS AND AN INABILITY TO CALM HERSELF DOWN TODAY. PATIENT DENIES SI, HI, FEVER, CHILLS, SHORTNESS OF BREATH, CHEST PAIN, ABDOMINAL PAIN, NAUSEA, VOMITI NG, HEADACHE, OR OTHER COMPLAINTS. NO OTHER SYMPTOMS OR MODIFYING FACTORS AT THIS TIME. PATIENT IS ALERT, ORIENTED X 4, AND HAS STEADY GAIT. Chief Complaint: Anxiety Time Seen by MD: 09:15 Primary Care Provider: JOHN Reviewed Notes: Nurses Notes, Customer Assistance Associate Notes, Medications, Allergies Allergies: Coded Allergies: NO KNOWN ALLERGIES (Unverified , 09/29/16) Home Meds Active Scripts Hydroxyzine Hcl (Hydroxyzine Hcl) 50 Mg Tab, 50 MG PO BID, #30 TAB Prov:SIMRAN BRYAN 03/15/25 Ibuprofen (Ibuprofen) 600 Mg Tab, 1 TAB PO TID for 10 Days, #30 TAB 0 Refills Prov:ROSITA HULL NP 12/12/24 Ibuprofen Micronized (MOTRIN TABLET) 600 Mg Tb, 600 MG PO TID PRN for 5 Days, #15 TAB *Black box warning-NSAIDS can increase risk of MT & hypertension, GI irritation, ulceration, bleed, perferation. Do not use post cardiac surgery. Use short duration/lowest effective dose. Prov:LEENA LOPEZ MD 10/22/24 Ibuprofen (Ibuprofen) 800 Mg Tab, 1 TAB PO TID, #30 TAB Prov:SIMRAN BRYAN 10/20/24 Information Source: Patient, Emergency Med Personnel Mode of Arrival: EMS Severity: Mild, Moderate Timing: Hours Duration: Since onset, Hours Prehospital treatment: None Medication Refill: For: Other (ANXIETY) Past Medical History PAST MEDICAL HISTORY: Anxiety, Asthma, COPD, HTN, Schizophrenia Surgical History: Denies all surgeries SENIOR UNDERWRITER History: No Pertinent SENIOR UNDERWRITER History Family History Family History: Reviewed,noncontributory to illness Social History Smoker: Cigarettes, Unknown Alcohol: Denies ETOH Use Drugs: Denies Drug Use Lives In: Home Constitutional: reports: others (ANXIOUS ); denies: chills, diaphoresis, fatigue, fever, malaise, sweats, weakness EENTM: denies: blurred vision, double vision, ear bleeding, ear discharge, ear drainage, ear pain, ear ringing, eye pain, eye redness, hearing loss, mouth pain, mouth swelling, nasal discharge, nose bleeding, nose congestion, nose pain, photophobia, tearing, throat pain, throat swelling, voice changes, others Respiratory: denies: cough, hemoptysis, orthopnea, SOB at rest, shortness of breath, SOB with excertion, stridor, wheezing, others Cardiovascular: denies: chest pain, dizzy spells, diaphoresis, Dyspnea on exertion, edema, irregular heart beat, left arm pain, lightheadedness, palpitations, PND, syncope, others Gastrointestinal: denies: abdomen distended, abdominal pain, blood streaked bowels, constipated, diarrhea, dysphagia, difficulty swallowing, hematemesis, melena, nausea, poor appetite, poor fluid intake, rectal bleeding, rectal pain, vomiting, others Genitourinary: denies: abnormal vagina bleeding, burning, dyspareunia, dysuria, flank pain, frequency, hematuria, incontinence, pain, , vagina discharge, urgency, others Neurological: reports: tingling, tremors; denies: dizziness, fainting, headache, left sided numbness, left sided weakness, numbness, paresthesia, pre- existing deficit, right sided numbness, right sided weakness, seizure, speech problems, weakness, others Musculoskeletal: denies: back pain, gout, joint pain, joint swelling, muscle pain, muscle stiffness, neck pain, others Integumetry: denies: bruises, change in color, change in hair/nails, dryness, laceration, lesions, lumps, rash, wounds, others Hematologic/Lymphatic: denies: anemia, blood clots, easy bleeding, easy bruising, swollen glands, others Endocrine: denies: excessive hunger, excessive sweating, excessive thirst, excessive urination, flushing, intolerance to cold, intolerance to heat, unexplained weight gain, unexplained weight loss, others Psychiatric: reports: anxiety; denies: bipolar disorder, depression, hopeless, panic disorder, schizophrenia, sleepless, suicidal, others All Other Systems: Reviewed and Negative Physical Exam General Appearance: Mild Distress, Normal, Other (ANXIOUS AND ANXIETY ) HEENT: Normal ENT Inspection, PERRL/EOMI, Pharynx Normal, TMs Normal Neck: Full Range of Motion, Non-Tender, Normal, Normal Inspection Respiratory: Chest Non-Tender, Lungs Clear, No Accessory Muscle Use, No Respiratory Distress, Normal Breath Sounds Cardiovascular: No Edema, No JVD, No Murmur, No Gallop, Normal Peripheral Pulses, Regular Rate/Rhythm Breast Exam: Deferred Gastrointestinal: No Organomegaly, Non Tender, No Pulsatile Mass, Normal Bowel Sounds, Soft Genitalia: Deferred Pelvic: Deferred Rectal: Deferred Extremities: No calf tenderness, Normal capillary refill, Normal inspection, Normal range of motion, Non-tender, No pedal edema, Other (MILD CARPAL SPASM. ) Musculoskeletal : Apperance: Normal Neurologic: Alert, judicial administrative assistant II-XII nml as Tested, No Motor Deficits, Normal Affect, Normal Mood, No Sensory Deficits Cerebellar Function: Normal Reflexes: Normal Skin: Dry, Normal Color, Warm Peripheral Pulses: 2+ carotid (R), 2+ carotid (L) Lymphatic: No Adenopathy Was a procedure done? Was a procedure done?: No EKG EKG : Pulse Rate (adult): 109 [place]: Normal Block: None Hypertrophy: None ST: Normal Comments SINUS TACHYCARDIA Differential Dx Considerations may include: ANXIETY REACTION, HYPERVENTILATION SYNDROME, WELL CHECK X-Ray, Labs, Meds, VS Vital Signs Date Time Temp Pulse Resp B/P (MAP) Pulse Ox O2 Delivery O2 Flow Rate FiO2 03/15/25 10:45 99 18 97 Room Air 03/15/25 10:45 99 18 124/86 (99) 97 03/15/25 09:39 109 03/15/25 09:04 109 03/15/25 08:58 97.7 119 18 177/114 97 97.7 Lab Test 03/15/25 09:52 Range/Units White Blood Count 10.1 4.4-10.8 10^3/uL Red Blood Count 4.95 4.0-5.20 10^6/uL Hemoglobin 15.4 12.2-16.2 g/dL Hematocrit 44.7 36.0-46.0 % Mean Corpuscular Volume 90.3 80.0-100.0 fL Mean Corpuscular Hemoglobin 31.2 28.0-32.0 pg Mean Corpuscular Hemoglobin Concent 34.5 32.0-36.0 g/dL Red Cell Distribution Width 14.3 11.8-14.3 % Platelet Count 268 140-450 10^3/uL Mean Platelet Volume 7.8 6.9-10.8 fL Neutrophils (%) (Auto) 83.5 H 37.0-80.0 % Lymphocytes (%) (Auto) 9.4 L 10.0-50.0 % Monocytes (%) (Auto) 6.7 0.0-12.0 % Eosinophils (%) (Auto) 0.1 0.0-7.0 % Basophils (%) (Auto) 0.3 0.0-2.0 % Neutrophils # (Auto) 8.5 1.6-8.6 10 ^3/uL Lymphocytes # (Auto) 1.0 0.4-5.4 10 ^3/uL Monocytes # (Auto) 0.7 0-1.3 10 ^3/uL Eosinophils # (Auto) 0 0-0.8 10 ^3/uL Basophils # (Auto) 0 0-0.2 10 ^3/uL Nucleated Red Blood Cells 0.1 % Sodium Level 143 136-145 mmol/L Potassium Level 3.8 3.5-5.1 mmol/L Chloride Level 107 98-107 mmol/L Carbon Dioxide Level 23 20-31 mmol/L Anion Gap 13 5-15 Blood Urea Nitrogen 8 L 9-23 mg/dL Creatinine 1.24 H 0.550-1.02 mg/dL Glomerular Filtration Rate Calc 50 >90 mL/min BUN/Creatinine Ratio 6.5 L 10.0-20.0 Serum Glucose 119 H 74-106 mg/dL Calcium Level 10.0 8.7-10.4 mg/dL Troponin I High Sensitivity 32 </=34 ng/L Thyroid Stimulating Hormone (TSH) 7.23 H 0.55-4.78 uIU/mL Current Medications Medications (Trade) Dose Ordered Sig/Aurora Route Start Time Stop Time Status Last Admin Lorazepam (Ativan Tablet) 1 mg ONCE ONCE PO 03/15/25 10:00 03/15/25 10:01 DC 03/15/25 10:01 X-Ray, Labs, Meds, VS Comment EXTERNAL MEDICAL RECORDS REVIEWED: [NONE] INDEPENDENT HISTORIANS: [NONE] SOCIAL DETERMINANTS OF HEALTH: [NONE] LABS ORDERED: CBC, BMP, UA, TSH, TROPONIN REVIEWED AND INTERPRETED RESULTS: TSH 7.23 IMAGING ORDERED: NONE TREATMENTS ORDERED: ATIVAN 1 MG P.O. PROCEDURES PERFORMED: NONE CRITICAL CARE TIME: NONE I HAVE DISCUSSED THE PATIENT WITH THE ATTENDING PHYSICIAN DR. DHILLON AND HE AGREES WITH THE PATIENT'S PLAN OF CARE AND DISPOSITION. BASED ON HISTORY OF PRESENT ILLNESS, AND PHYSICAL EXAM, PATIENT WILL BE DISCHARGED HOME. DISCUSSED PLAN FOR DISCHARGE HOME WITH RX [VISTARIL 50 MG]. MEDICATION WARNINGS GIVEN. SHARED DECISION MAKING: PATIENT INSTRUCTED TO FOLLOW UP WITH PRIMARY CARE PROVIDER IN 1-2 DAYS FOR RE-EVALUATION OF SYMPTOMS. PATIENT VERBALIZES UNDE RSTANDING TO RETURN TO ED FOR NEW OR WORSENING SYMPTOMS OR IF FOLLOW UP WITH PCP CANNOT BE OBTAINED. PATIENT FEELS COMFORTABLE GOING HOME AT THIS TIME. ALL QUESTIONS ADDRESSED AT TIME OF DISCHARGE. Time of 1ST Reevaluation: 11:02 Reevaluation 1ST: Improved Patient Education/Counseling: Diagnosis, Treatment, Need For Follow Up Family Education/Counseling: Diagnosis, Treatment, Need For Follow Up Medical Screening: No EMC Exist At This Time SEPSIS Sepsis Screen Date sepsis recognized/suspect: Mar 15, 2025 Time Sepsis recognized/suspect: 0858 Recent Procedure: No On Antibiotic Therapy: No Respiratory Rate >20: No Heart Rate >90: Yes Temp<36 C (96.8 F) or >38.3 C: No SBP <90 or MAP <65 mmHG: No New Acute Mental Status Change: No Is the patient on CPAP, BIPAP,: No Physician Orders Electrocardigram (03/15/25 09:13) Vital Signs Date Time Temp Pulse Resp B/P (MAP) Pulse Ox O2 Delivery O2 Flow Rate FiO2 03/15/25 10:45 99 18 97 Room Air 03/15/25 10:45 99 18 124/86 (99) 97 03/15/25 09:39 109 03/15/25 09:04 109 03/15/25 08:58 97.7 119 18 177/114 97 97.7 Laboratory Tests Test 03/15/25 09:52 White Blood Count 10.1 10^3/uL (4.4-10.8) Medications Medications Dose Ordered Sig/Aurora Route Start Time Stop Time Status Last Admin Dose Admin Lorazepam 1 mg ONCE ONCE PO 03/15/25 10:00 03/15/25 10:01 DC 03/15/25 10:01 Departure 1 Departure Time of Disposition: 11:02 Impression: Primary Impression: Anxiety reaction Additional Impression: Hypothyroidism Qualified Codes: E03.9 - Hypothyroidism, unspecified Disposition: 01 HOME / SELF CARE / HOMELESS Condition: Stable Additional Instructions: FOLLOW-UP WITH PCP IN 1 TO 2 DAYS. TAKE MEDICATIONS PRESCRIBED. RETURN TO ED FOR ANY NEW OR WORSENING SYMPTOMS. e-Prescriptions Hydroxyzine Hcl (Hydroxyzine Hcl) 50 Mg Tab 50 MG PO BID, #30 TAB Prov: SIMRAN BRYAN 03/15/25 Discharged With: Self Critical Care Note Critical Care Time?: No Stability Stability form required: No I personally scribed for SIMRAN BRYAN ([email or web address]) on 03/15/25 at 09:38. Electronically submitted by Tyler Mccarty ([employer]). I personally scribed for SIMRAN BRYAN ([email or web address]) on 03/15/25 at 09:39. Electronically submitted by Tyler Mccarty ([employer]). I personally scribed for SIMRAN BRYAN ([email or web address]) on 03/15/25 at 09:39. Electronically submitted by Tyler Mccarty ([employer]). I personally scribed for SIMRAN BRYAN ([email or web address]) on 03/15/25 at 10:50. Electronically submitted by Tyler Mccarty ([employer]). SIMRAN BRYAN Mar 15, 2025 09:38
[2025-03-15] MEDS ORDERED: LORazepam 2MG/ML-1ML VIAL IM ONE (09:45)
[2025-03-15] MEDS: LORazepam 0.5 MG TAB PO ONE (10:01)
[2025-03-15 10:29] LABS: Hematocrit 44.7 % (36.0-46.0); Hemoglobin 15.4 g/dL (12.2-16.2); Mean Corpuscular Hemoglobin 31.2 pg (28.0-32.0); Mean Corpuscular Volume 90.3 fL (80.0-100.0); Nucleated Red Blood Cells % 0.1 %
[2025-03-15 10:35] LABS: Chloride 107 mmol/L (98-107); Potassium 3.8 mmol/L (3.5-5.1); Sodium 143 mmol/L (136-145)
[2025-03-15 10:36] LABS: Anion Gap 13 (5-15); Carbon Dioxide 23 mmol/L (20-31)
[2025-03-15 10:37] LABS: Calcium 10.0 mg/dL (8.7-10.4)
[2025-03-15 10:42] LABS: BUN/Creatinine Ratio 6.5 (10.0-20.0); Blood Urea Nitrogen 8 mg/dL (9-23); Glucose 119 mg/dL (74-106)
[2025-03-15 10:45] VITALS: BP 124/86; PULSE 99; RESP 18; O2SAT 97
[2025-03-15] MEDS ORDERED: HYDR50TA69 PO (10:59)
--- NOTE | 2025-03-15 21:45 | ECG ---
[facility] Test Date: 2025-03-15 Test Time: 09:04:12 Pat Name: KATIUSKA QUINTANA Department: [facility] ED Patient ID: [id number] Room: Gender: F Family Engagement Specialist: AGNES : 1965 Requested By: ROLANDO CARRASQUILLO Order Number: [id number] Reading MD: Pablo Miller Measurements Intervals [place] Rate: 109 P: 63 NE: 160 QRS: -13 QRSD: 83 T: 54 QT: 343 QTc: 463 Interpretive Statements Sinus tachycardia Electronically Signed On 03-15-2025 22:21:07 PDT by Pablo Miller Please click the below link to view image of tracing.
== END 2025-03-15 11:06 | disposition home or self-care (01) ==
LOC: EDBD 08:51 → ER 08:51
DX: F41.9 Anxiety disorder, unspecified (principal); E03.9 Hypothyroidism, unspecified; F17.210 Nicotine dependence, cigarettes, uncomplicated; F20.9 Schizophrenia, unspecified; I10 Essential (primary) hypertension; J44.89 Other specified chronic obstructive pulmonary disease; J45.909 Unspecified asthma, uncomplicated; Z79.1 Long term (current) use of non-steroidal anti-inflammatories (NSAID); Z79.899 Other long term (current) drug therapy
CPT/HCPCS: 36415; 80048; 84443; 84484; 85025; 93005

== ENCOUNTER 2025-03-17 12:01 | Emergency (ER) | payer MEDICAID ==
[~2025-03-17] VITALS: Ht 172.7 cm; Wt 90.0 kg
[~2025-03-17 12:01] MED LIST changes: +HYDR50TA69 PO
[2025-03-17 13:00] VITALS: PULSE 125; RESP 14; O2SAT 96
[2025-03-17 13:02] LABS: Hematocrit 44.5 % (36.0-46.0); Hemoglobin 15.2 g/dL (12.2-16.2); Mean Corpuscular Hemoglobin 31.1 pg (28.0-32.0); Mean Corpuscular Volume 90.8 fL (80.0-100.0); Nucleated Red Blood Cells % 0.1 %
[2025-03-17 13:16] LABS: Alanine Aminotransferase 17 U/L (7-40); Albumin 4.6 g/dL (3.2-4.8); Alkaline Phosphatase 91 U/L (46-116); Anion Gap 13 (5-15); BUN/Creatinine Ratio 9.0 (10.0-20.0); Bilirubin, Total 0.6 mg/dL (0.2-1.0); Blood Urea Nitrogen 11 mg/dL (9-23); Calcium 9.8 mg/dL (8.7-10.4); Carbon Dioxide 24 mmol/L (20-31); Chloride 107 mmol/L (98-107); Potassium 3.8 mmol/L (3.5-5.1); Sodium 144 mmol/L (136-145); Total Protein 7.6 g/dL (5.7-8.2)
[2025-03-17 13:18] LABS: Glucose 151 mg/dL (74-106)
[2025-03-17 13:22] LABS: Lactic Acid w/Reflex 2.5 mmol/L (0.4-2.0)
[2025-03-17] MEDS: SODIUM CHLORIDE 0.9% 1,000 ML IV ONE (14:05)
--- NOTE | 2025-03-17 14:33 | ED.PDOC ---
Psychiatric HPI Comments HPI: Poor Historian. 59-year-old female walked into the emergency department for evaluation of unable take care of herself. Patient is homeless. Patient states having some suicidal ideation by overdosing. Denies any hallucinations at this time. Patient has not been taking any of her psych medications for a long time. Patient has attempted self cutting in the past. Past Medical History: Thyroid disease, arrhythmia, schizophrenia, depression, bumps of the scalp Past Surgical History: Cholecystectomy, femur/hip surgery REVIEW OF SYSTEMS: CONSTITUTIONAL: Denies acute: fever, diaphoresis, chills, HEAD: Denies acute: headache, photophobia Eyes: Denies acute: Double vision, vision loss, eye pain, eye discharge. EARS: Denies acute: tinnitus, hearing loss, ear discharge, ear pain, THROAT: Denies acute: sore throat, swelling, difficulty swallowing , pain with swallowing, change in voice. NECK: Denies acute: neck pain, neck swelling, stiff neck. HEART: Denies acute : chest pain, palpitations, LUNGS: Denies acute: SOB, wheezing, cough, hemoptysis ABDOMEN: Denies acute: abdominal pain, Nausea, Vomiting, diarrhea, melena , hematemesis, hematochezia SKIN: Denies acute: rash, redness, lesions, itchiness. EXTREMITIES: Denies acute: calf pain, numbness, tingling, weakness, denies pain in extremity. Denies acute: Low back pain. Neuro: Denies acute: focal neurological deficit, motor or sensory focal neurological deficit, tremors, seizure like activity, confusion, dizziness, change in mental status, loss of bowel or bladder function, cauda equina like symptoms. : Denies acute: dysuria, hematuria, flank pain, increase in urinary frequency. PSYCH: Denies acute: hallucination, homicidal ideation. FEMALE: Denies acute: abnormal vaginal bleeding, foul odor, unusual discharge. PHYSICAL EXAM: General: ---no-----acute distress, awake and alert. Head: normocephalic, atraumatic. Neck: supple, trachea is midline, no swelling. Throat: Normal phonation. Eyes:, no erythema, no purulent discharge, no proptosis, no icterus. Heart: regular rate, regular rhythm, no significant murmur appreciated. Lungs: no apparent respiratory distress, Able to speak in full sentences. No wheezing, no rhonchi, no crackles. No stridors Clear to auscultation bilaterally. Abdomen: non tender to palpation, non distended, soft, no guarding, no rebound, + bowel sounds. Neuro: Awake, Alert, oriented to name, self, situation, follows commands GCS=15. Speech is normal. Skin: no petechia, no purpura, no cyanosis, non-pale, not jaundice. Lower extremities: --no - Pitting edema no deformity, no focal swelling, no calf TTP. Makes eye contact. moves all four extremities. Face: no apparent facial droop. Ambulating in the ED independently. ED COURSE: DISCLAIMER: This medical document was created using an electronic medical record system with voice recognition software and computerized dictation system. Although this document has been carefully reviewed, there might still be some phonetic and typographical errors. Occasional wrong-word or "sound-alike" substitutions may have occurred due to the inherent limitations of voice recognition software. These areas are purely typographical due to imperfections of the software programs and do not reflect any compromise in the patient's medical care. Please read the chart carefully and recognize, using context, where these substitutions have occurred. Chief Complaint: Suicidal Time Seen by MD: 12:45 Primary Care Provider: JOHN Information Source: Patient Mode of Arrival: Ambulatory Past Medical History PAST MEDICAL HISTORY: Anxiety, Asthma, COPD, HTN, Schizophrenia Surgical History: Denies all surgeries HOISTING ENGINE OPERATOR History: No Pertinent HOISTING ENGINE OPERATOR History Family History Family History: Reviewed,noncontributory to illness Social History Smoker: Cigarettes, Unknown Alcohol: Denies ETOH Use Drugs: Denies Drug Use Lives In: Home X-Ray, Labs, Meds, VS Vital Signs Date Time Temp Pulse Resp B/P (MAP) Pulse Ox O2 Delivery O2 Flow Rate FiO2 03/17/25 13:00 125 14 96 Room Air* 0 21 03/17/25 12:30 97.6 125 14 149/98 (115) 96 97.6 03/17/25 12:05 97.8 89 18 159/99 100 97.8 Lab Test 03/17/25 14:49 03/17/25 13:13 03/17/25 12:51 Range/Units Lactic Acid Level 1.3 2.5 *H 0.4-2.0 mmol/L Urine Opiates Screen Neg NEGATIVE Urine Fentanyl Screen Neg NEGATIVE Urine Barbiturates Screen Neg NEGATIVE Urine Phencyclidine Screen Neg NEGATIVE Urine Amphetamines Screen Neg NEGATIVE Urine Benzodiazepines Screen Neg NEGATIVE Urine Cocaine Screen Neg NEGATIVE Urine Cannabinoids Screen Neg NEGATIVE White Blood Count 9.5 4.4-10.8 10^3/uL Red Blood Count 4.89 4.0-5.20 10^6/uL Hemoglobin 15.2 12.2-16.2 g/dL Hematocrit 44.5 36.0-46.0 % Mean Corpuscular Volume 90.8 80.0-100.0 fL Mean Corpuscular Hemoglobin 31.1 28.0-32.0 pg Mean Corpuscular Hemoglobin Concent 34.2 32.0-36.0 g/dL Red Cell Distribution Width 13.9 11.8-14.3 % Platelet Count 274 140-450 10^3/uL Mean Platelet Volume 7.3 6.9-10.8 fL Neutrophils (%) (Auto) 72.1 37.0-80.0 % Lymphocytes (%) (Auto) 19.7 10.0-50.0 % Monocytes (%) (Auto) 7.2 0.0-12.0 % Eosinophils (%) (Auto) 0.5 0.0-7.0 % Basophils (%) (Auto) 0.5 0.0-2.0 % Neutrophils # (Auto) 6.9 1.6-8.6 10 ^3/uL Lymphocytes # (Auto) 1.9 0.4-5.4 10 ^3/uL Monocytes # (Auto) 0.7 0-1.3 10 ^3/uL Eosinophils # (Auto) 0 0-0.8 10 ^3/uL Basophils # (Auto) 0 0-0.2 10 ^3/uL Nucleated Red Blood Cells 0.1 % Sodium Level 144 136-145 mmol/L Potassium Level 3.8 3.5-5.1 mmol/L Chloride Level 107 98-107 mmol/L Carbon Dioxide Level 24 20-31 mmol/L Anion Gap 13 5-15 Blood Urea Nitrogen 11 9-23 mg/dL Creatinine 1.22 H 0.550-1.02 mg/dL Glomerular Filtration Rate Calc 50 >90 mL/min BUN/Creatinine Ratio 9.0 L 10.0-20.0 Serum Glucose 151 H 74-106 mg/dL Calcium Level 9.8 8.7-10.4 mg/dL Total Bilirubin 0.6 0.2-1.0 mg/dL Aspartate Amino Transferase (AST) 28 13-40 U/L Alanine Aminotransferase (ALT) 17 7-40 U/L Alkaline Phosphatase 91 46-116 U/L Total Protein 7.6 5.7-8.2 g/dL Albumin 4.6 3.2-4.8 g/dL Current Medications Medications (Trade) Dose Ordered Sig/Aurora Route Start Time Stop Time Status Last Admin Sodium Chloride 1,000 ml @ 1,000 mls/hr Q1H ONCE IV 03/17/25 13:30 03/17/25 14:29 DC 03/17/25 14:05 Time of 1ST Reevaluation: 14:33 (Patient is awaiting social service and tele psych evaluation. Patient has been medically cleared.) Time of 2ND Reevaluation: 17:36 (Dr. Gupta the tele psych Called and said that the patient needs to be on a 5150 hold for danger to self. He does not know what medications to start her on because the patient is unable to tell him her medication list. Patient has been quiet and cooperative this far in the ED. Patient is awaiting psych facility placement and social service consult.) Reevaluation 2ND: Unchanged Patient Education/Counseling: Diagnosis, Treatment Family Education/Counseling: Other Departure 1 Departure Time of Disposition: 14:32 Impression: Primary Impression: Suicidal ideation Additional Impressions: H/O medication noncompliance Homeless Patient needs psychiatric hold for evaluation Disposition: 30 STILL A PATIENT Discharged With: Self I personally scribed for KALEY SOLOMON DO ([email or web address]) on 03/17/25 at 17:25. Electronically submitted by Yoselin Petty ([facility]). KALEY SOLOMON DO Mar 17, 2025 14:33
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
[2025-03-17 15:49] LABS: Amphetamine Screen, Urine Neg (NEGATIVE); Barbiturate Scree,Urine Neg (NEGATIVE); Benzodiazephine Screen, Urine Neg (NEGATIVE); Cannabinoid Screen, Urine Neg (NEGATIVE); Cocaine Screen, Urine Neg (NEGATIVE); Opiate Scree,Urine Neg (NEGATIVE); Phencyclidine Screen, Urine Neg (NEGATIVE)
[2025-03-17 21:10] VITALS: PULSE 84; O2SAT 96
[2025-03-18 07:10] VITALS: PULSE 84; RESP 19; O2SAT 98
[2025-03-18 08:51] VITALS: BP 120/86; PULSE 80; RESP 18; TEMP 98; O2SAT 97
== END 2025-03-18 09:23 | disposition short-term general hospital (02) ==
LOC: ER 12:01
DX: R45.851 Suicidal ideations (principal); I10 Essential (primary) hypertension; F32.A Depression, unspecified; F20.9 Schizophrenia, unspecified; F17.210 Nicotine dependence, cigarettes, uncomplicated; Z59.00 Homelessness unspecified; Z91.148 Patient's other noncompliance with medication regimen for other reason; Z90.49 Acquired absence of other specified parts of digestive tract; Z79.899 Other long term (current) drug therapy
CPT/HCPCS: 36415; 80053; 80307; 83605; 85025; 96360; 99285; J7030